=== PATIENT | male | born 1985 | race Two or more races ===

== ENCOUNTER 2019-06-11 23:44 | Emergency (ER) | payer MEDICAID, OTHER | END 2019-06-12 | disposition left against medical advice (07) | LOC: ER 23:44 | DX: R10.9 Unspecified abdominal pain (principal); Z53.21 Procedure and treatment not carried out due to patient leaving prior to being seen by health care provider ==

== ENCOUNTER 2020-04-16 20:57 | Emergency (ER) | payer MEDICAID ==
[~2020-04-16] VITALS: Ht 162.6 cm; Wt 95.3 kg
[2020-04-16 21:21] VITALS: BP 139/89
== END 2020-04-17 03:09 | disposition left against medical advice (07) ==
LOC: ER 21:00
DX: M25.572 Pain in left ankle and joints of left foot (principal); Z53.21 Procedure and treatment not carried out due to patient leaving prior to being seen by health care provider
CPT/HCPCS: 73610